=== PATIENT | male | born 1985 | race Caucasian/White ===

== ENCOUNTER 2019-05-05 01:10 | Emergency (ER) | payer MEDICAID, OTHER ==
[~2019-05-05] VITALS: Ht 175.3 cm; Wt 65.0 kg
[~2019-05-05 01:10] MED LIST: CLIN150C16 PO
[2019-05-05 01:15] VITALS: BP 134/80
[2019-05-05] MEDS ORDERED: bupivacaine 0.25%/epinephrine 1:200,000 inj (contains preserv. MDV) IJ ONE (01:35)
[2019-05-05] MEDS ORDERED: amoxicillin 250mg capsule PO ONE (01:40)
[2019-05-05] MEDS ORDERED: AMOX-101 PO (01:41)
== END 2019-05-05 02:00 | disposition home or self-care (01) ==
LOC: ER 01:11
DX: K04.7 Periapical abscess without sinus (principal); K02.9 Dental caries, unspecified; F15.90 Other stimulant use, unspecified, uncomplicated; Z56.0 Unemployment, unspecified; Z90.89 Acquired absence of other organs; Z88.6 Allergy status to analgesic agent; Z88.8 Allergy status to other drugs, medicaments and biological substances
CPT/HCPCS: 64400; 99284